=== PATIENT | female | born 1955 | race Caucasian/White ===

== ENCOUNTER 2017-05-11 07:01 | Day surgery (SDC) | payer BC ==
[~2017-05-11] VITALS: Ht 162.6 cm; Wt 80.3 kg
--- NOTE | ~2017-05-11 | EGD ---
EGD REPORT [facility] [address] [address] NAME: TIARA SIGALA : 55 STATUS : REG [facility] [place] PAT#: [id number] AGE: 62 ADM/REG DATE : 05/11/17 MR#: [id number] REPORT SERV DATE: 05/13/17 DICTATED BY: VAMSI MONTILLA DATE: 05/13/17 REPORT STATUS : Draft TRANSCRIBED BY: [facility] DATE: 05/13/17 Endoscopy Center Patient Name: Tiara Sigala Date of : 1955 Attending MD: VAMSI MONTILLA MD Procedure Date No Time: 05/11/2017 Procedure: Upper GI endoscopy Indications: Epigastric abdominal pain, Abdominal pain in the left upper quadrant, Dysphagia, Gastro-esophageal reflux disease Referring MD: EMANI DEL VALLE Medicines: Propofol per Anesthesia Complications: No immediate complications. Procedure: Pre-Anesthesia Assessment: - ASA Grade Assessment: III - A patient with severe systemic disease. After obtaining informed consent, the endoscope was passed under direct vision. Throughout the procedure, the patient's blood pressure, pulse, and oxygen saturations were monitored continuously. The GIF [id number] was introduced through the mouth, and advanced to the third part of duodenum. The upper GI endoscopy was accomplished without difficulty. The patient tolerated the procedure well. Findings: Non-severe esophagitis with no bleeding was found in the entire esophagus. Biopsies were taken with a cold forceps for histology. Done after dilation Looking for EOE A benign-appearing, intrinsic mild stenosis was found in the upper third of the esophagus and was traversed. A guidewire was placed and the scope was withdrawn. Dilation was performed with a Savary dilator with mild resistance at 60 Fr. The esophagus looked satisfactory post dilation A small hiatus hernia was present. Seen on retroflexion, done prior to dilation Diffuse mild inflammation characterized by congestion (edema) and erythema was found in the entire examined stomach. Biopsies were taken with a cold forceps for Helicobacter pylori testing. Diffuse mild inflammation characterized by congestion (edema) and erythema was found in the duodenal bulb. Biopsies were taken with a cold forceps for evaluation of celiac disease. And giardia, whipple's disease, and enteritis The 2nd part of the duodenum and 3rd part of the duodenum were normal. Biopsies were taken with a cold forceps for evaluation of celiac disease. And giardia, whipple's disease, and enteritis EGD REPORT [address] [place]. [address] NAME: TIARA SIGALA : 55 STATUS : REG [facility] [place] PAT#: [id number] AGE: 62 ADM/REG DATE : 05/11/17 MR#: [id number] REPORT SERV DATE: 05/13/17 DICTATED BY: VAMSI MONTILLA DATE: 05/13/17 REPORT STATUS : Draft TRANSCRIBED BY: [employer] DATE: 05/13/17 Impression: - Non-severe esophagitis. Biopsied. - Benign-appearing esophageal stricture. Dilated. - Hiatus hernia. - Gastritis. Biopsied. - Duodenitis. Biopsied. - Normal 2nd part of the duodenum and 3rd part of the duodenum. Biopsied. Recommendation: - Patient has a contact number available for emergencies. The signs and symptoms of potential delayed complications were discussed with the patient. Return to normal activities tomorrow. Written discharge instructions were provided to the patient. - Clear liquid diet today. - diet is clear liquid today, full liquid tomorrow, soft mushy food the next day, and resume usual diet the day after that. - Continue present medications. - Await pathology results. - Return to my office as previously scheduled. - Discharge patient to home. Procedure Code(s): --- Professional --- 83201, Esophagogastroduodenoscopy, flexible, transoral; with insertion of guide wire followed by passage of dilator(s) through esophagus over guide wire 53452, Esophagogastroduodenoscopy, flexible, transoral; with biopsy, single or multiple Diagnosis Code(s): --- Professional --- K20.9, Esophagitis, unspecified K22.2, Esophageal obstruction K44.9, Diaphragmatic hernia without obstruction or gangrene K29.70, Gastritis, unspecified, without bleeding K29.80, Duodenitis without bleeding R10.13, Epigastric pain R10.12, Left upper quadrant pain R13.10, Dysphagia, unspecified K21.9, Gastro-esophageal reflux disease without esophagitis CPT copyright 2013 [employer]. All rights reserved. The codes documented in this report are preliminary and upon field seismologist review may EGD REPORT [address] [address] NAME: TIARA SIGALA : 55 STATUS : REG [facility] [place] PAT#: [id number] AGE: 62 ADM/REG DATE : 05/11/17 MR#: [id number] REPORT SERV DATE: 05/13/17 DICTATED BY: VAMSI MONTILLA DATE: 05/13/17 REPORT STATUS : Draft TRANSCRIBED BY: [employer] DATE: 05/13/17 be revised to meet current compliance requirements. Vamsi Montilla MD VAMSI MONTILLA MD 05/11/2017 11:11 AM This report has been signed electronically. Number of Addenda: 0 Note Initiated On: 05/11/2017 9:24 AM Scope Withdrawal Time 0 hours 0 minutes 0 seconds
--- NOTE | ~2017-05-11 | EGD ---
EGD REPORT [facility] [address] [address] NAME: TIARA SIGALA : 55 STATUS : REG [facility] [place] PAT#: [id number] AGE: 62 ADM/REG DATE : 05/11/17 MR#: [id number] REPORT SERV DATE: 05/13/17 DICTATED BY: VAMSI MONTILLA DATE: 05/13/17 REPORT STATUS : Draft [facility]ANS[facility]IBED [facility]: [facility] DATE: 05/13/17 Endoscopy Center Patient Name: Tiara Sigala Date of : 1955 Attending MD: VAMSI MONTILLA MD Procedure Date No Time: 05/11/2017 Procedure: Colonoscopy Indications: Surveillance: Personal history of adenomatous polyps on last colonoscopy 5 years ago Referring MD: EMANI DEL VALLE Medicines: Propofol per Anesthesia Complications: No immediate complications. Procedure: After I obtained informed consent, the scope was passed under direct vision. Throughout the procedure, the patient's blood pressure, pulse, and oxygen saturations were monitored continuously. The CF [id number] was introduced through the anus and advanced to the terminal ileum. The colonoscopy was performed with moderate difficulty due to restricted mobility of the colon. Successful completion of the procedure was aided by withdrawing the scope and replacing with the pediatric colonoscope. The appendiceal orifice and terminal ileum were photographed. The patient tolerated the procedure well. The quality of the bowel preparation was good. Findings: The perianal and digital rectal examinations were normal. The terminal ileum appeared normal. Biopsies were taken with a cold forceps for histology. to r/o microscopic ileitis The colon (entire examined portion) appeared normal. Biopsies were taken with a cold forceps from the right colon for evaluation of microscopic colitis. Biopsies were taken with a cold forceps from the left colon for evaluation of microscopic colitis. Multiple small and large-mouthed diverticula were found in the recto-sigmoid colon and in the sigmoid colon. Two sessile polyps were found in the rectum. The polyps were 2 to 3 mm in size. These polyps were removed with a cold biopsy forceps. Resection and retrieval were complete. Non-bleeding internal hemorrhoids were found during retroflexion and were mild, small and Grade I (internal hemorrhoids that do not prolapse). Impression: - The examined portion of the ileum was normal. Biopsied. - The entire examined colon is normal. Biopsied. - Diverticulosis in the recto-sigmoid colon and in the sigmoid colon. EGD REPORT [address] [place]. [address] NAME: TIARA SIGALA : 55 STATUS : REG [facility] [place] PAT#: [id number] AGE: 62 ADM/REG DATE : 05/11/17 MR#: [id number] REPORT SERV DATE: 05/13/17 DICTATED BY: VAMSI MONTILLA DATE: 05/13/17 REPORT STATUS : Draft TRANSCRIBED BY: [facility] DATE: 05/13/17 - Two 2 to 3 mm polyps in the rectum. Resected and retrieved. - Non-bleeding internal hemorrhoids. Recommendation: - Patient has a contact number available for emergencies. The signs and symptoms of potential delayed complications were discussed with the patient. Return to normal activities tomorrow. Written discharge instructions were provided to the patient. - Clear liquid diet today. - diet is clear liquid today, full liquid tomorrow, soft mushy food the next day, and resume usual diet the day after that. - Continue present medications. - Await pathology results. - Repeat colonoscopy in 3 - 5 years for surveillance based on pathology results. - Return to my office as previously scheduled. - Discharge patient to home. Procedure Code(s): --- Professional --- 56904, Colonoscopy, flexible, proximal to splenic flexure; with biopsy, single or multiple Diagnosis Code(s): --- Professional --- K64.0, First degree hemorrhoids K57.30, Diverticulosis of large intestine without perforation or abscess without bleeding K62.1, Rectal polyp Z86.010, Personal history of colonic polyps CPT copyright 2013 [employer]. All rights reserved. The codes documented in this report are preliminary and upon chemical lab technician review may be revised to meet current compliance requirements. Vamsi Montilla MD VAMSI MONTILLA MD 05/11/2017 11:20 AM This report has been signed electronically. Number of Addenda: 0 Note Initiated On: 05/11/2017 9:24 AM Scope Withdrawal Time 0 hours 48 minutes 10 seconds EGD REPORT [facility] [address] [address] NAME: TIARA SIGALA DENNIS : 55 STATUS : REG [facility] [place] PAT#: [id number] AGE: 62 ADM/REG DATE : 05/11/17 MR#: [id number] REPORT SERV DATE: 05/13/17 DICTATED BY: VAMSI MONTILLA DATE: 05/13/17 REPORT STATUS : Draft TRANSCRIBED BY: [employer] DATE: 05/13/17 [address] [id number]
[~2017-05-11 07:01] MED LIST: ADVIL PO; ANOROELLIPTA INH; FLEX PO; GAS X PO; LEVSINTAB SL; PRILO PO; PROAIRRESP INH; SINGULAIR1 PO
== END 2017-05-11 23:59 | disposition home or self-care (01) ==
LOC: DMU 07:01
PROVIDERS: Internal Medicine Gastroenterology
PROC: 0DB58ZX Excision of Esophagus, Via Natural or Artificial Opening Endoscopic, Diagnostic (ICD-10-PCS; 2017-05-11)
PROC: 0DBP8ZX Excision of Rectum, Via Natural or Artificial Opening Endoscopic, Diagnostic (ICD-10-PCS; 2017-05-11)
PROC: 0D758ZZ Dilation of Esophagus, Via Natural or Artificial Opening Endoscopic (ICD-10-PCS; principal; 2017-05-11 12:00)
PROC: 0DB98ZX Excision of Duodenum, Via Natural or Artificial Opening Endoscopic, Diagnostic (ICD-10-PCS; 2017-05-11 12:00)
PROC: 0DB68ZX Excision of Stomach, Via Natural or Artificial Opening Endoscopic, Diagnostic (ICD-10-PCS; 2017-05-11 12:00)
DX: Z12.11 Encounter for screening for malignant neoplasm of colon (principal); K62.1 Rectal polyp; K29.50 Unspecified chronic gastritis without bleeding; K22.2 Esophageal obstruction; K21.9 Gastro-esophageal reflux disease without esophagitis; K44.9 Diaphragmatic hernia without obstruction or gangrene; K57.30 Diverticulosis of large intestine without perforation or abscess without bleeding; K64.0 First degree hemorrhoids; J44.9 Chronic obstructive pulmonary disease, unspecified; K76.0 Fatty (change of) liver, not elsewhere classified; E66.9 Obesity, unspecified; Z86.010 Personal history of colon polyps; Z88.8 Allergy status to other drugs, medicaments and biological substances; Z86.73 Personal history of transient ischemic attack (TIA), and cerebral infarction without residual deficits; Z68.30 Body mass index [BMI] 30.0-30.9, adult; Z90.710 Acquired absence of both cervix and uterus; Z98.890 Other specified postprocedural states; Z79.899 Other long term (current) drug therapy
CPT/HCPCS: 88305